=== PATIENT | female | born 1990 | race Caucasian/White ===

== ENCOUNTER 2017-04-02 20:28 | Emergency (ER) | payer MEDICAID ==
[~2017-04-02] VITALS: Ht 157.5 cm; Wt 91.4 kg
[~2017-04-02 20:28] MED LIST: CALC-141 PO; CALC0.25 PO; CALC0.5C PO; CALC200T10 PO; CALC200T3 PO; HYDR-3138 PO; LEVO125T PO; MAGN71.5 PO; METH5TAB6 PO; POTA1SOL PO
[2017-04-02 20:30] VITALS: BP 142/87
[2017-04-02] MEDS ORDERED: SODIUM CHLORIDE 0.9% 1,000ML IVBOLUS ONE (21:00)
[2017-04-02 21:51] LABS: BLOOD UREA NITROGEN 7 mg/dL (7-18)
[2017-04-02 22:10] LABS: ASPARTATE AMINO TRANSFERASE 13 U/L (15-37)
== END 2017-04-02 23:33 | disposition home or self-care (01) ==
LOC: ED 23:28
DX: O20.0 Threatened abortion (principal); Z3A.15 15 weeks gestation of pregnancy
CPT/HCPCS: 36415; 76805; 80053; 81003; 84702; 85025; 86901; 99285; J7030

== ENCOUNTER 2019-02-11 15:08 | Emergency (ER) | payer MEDICAID ==
[~2019-02-11] VITALS: Ht 157.5 cm; Wt 91.1 kg
[~2019-02-11 15:08] MED LIST changes: -CALC0.5C PO; +CALC0.5C9 PO; -CALC200T10 PO; +CALC200T56 PO; -HYDR-3138 PO; +HYDR-3237 PO; -POTA1SOL PO; +POTA1SOL4 PO
[2019-02-11] MEDS ORDERED: LEVO200T5 PO (15:48)
[2019-02-11] MEDS ORDERED: KETOROLAC 30 MG/1 ML ONE (15:59)
[2019-02-11] MEDS ORDERED: KETOROLAC 30 MG/1 ML IM ONE (16:00)
[2019-02-11 16:10] LABS: RAPID INFLUENZA A POSITIVE (Negative); RAPID INFLUENZA B Negative (Negative)
[2019-02-11 16:30] VITALS: BP 140/77
== END 2019-02-11 16:34 | disposition home or self-care (01) ==
LOC: ED 16:30
DX: J10.1 Influenza due to other identified influenza virus with other respiratory manifestations (principal)
CPT/HCPCS: 71046; 87400; 96372; 99284; J1885